=== PATIENT | female | born 1975 | race Two or more races ===

== ENCOUNTER 2020-02-16 13:24 | Outpatient (CLI) | payer MEDICAID ==
--- NOTE | 2020-02-16 17:15 | Consultation ---
DATE OF CONSULTATION: 02/16/2020 CHIEF COMPLAINT: The patient is here for new onset of constipation. PAST MEDICAL HISTORY: None. PAST SURGICAL HISTORY: Tubal ligation. MEDICATIONS: None. FAMILY HISTORY: Aunt had cancer, she does not know what kind of cancer. SOCIAL HISTORY: The patient denies any tobacco, alcohol, or drug abuse. ALLERGIES: To penicillin. REVIEW OF SYSTEMS: Positive for new onset of constipation. PHYSICAL EXAMINATION: VITAL SIGNS: Temperature 97.4, blood pressure 110/66, pulse 78, respirations 20. HEENT: Normocephalic and atraumatic. Sclerae anicteric. NECK: Supple. No evidence of obvious lymphadenopathy. CARDIOVASCULAR: Regular rate and rhythm. Plus S1 and S2. LUNGS: Clear to auscultation bilaterally. ABDOMEN: Positive bowel sounds. Soft and nontender. No rebound. No guarding. EXTREMITIES: No cyanosis. No clubbing. ASSESSMENT/PLAN: The patient is a 44-year-old female with new onset of constipation. The patient is very concerned about malignancy. According to her, she has family history of malignancy, so we are going to try to get authorization for colonoscopy. Meanwhile the patient was given MiraLAX 17 g p.o. at bedtime. Nito Pace M.D. DR: Luigi JOB#: [id number] CC:
== END 2020-02-16 15:24 | disposition home or self-care (01) ==
LOC: PAN 13:24
DX: K59.00 Constipation, unspecified (principal); Z88.0 Allergy status to penicillin
CPT/HCPCS: G0463

== ENCOUNTER 2020-05-08 08:56 | Outpatient (CLI) | payer MEDICAID ==
[2020-05-08 09:09] VITALS: BP 109/69
--- NOTE | 2020-05-08 09:36 | General Progress Note ---
Subjective ROS Limited/Unobtainable: Yes Allergies: Coded Allergies: PENICILLINS (Verified Allergy, Unknown, 02/22/20) Objective Last 24 Hour Vital Signs Date Time Temp Pulse Resp B/P (MAP) Pulse Ox O2 Delivery O2 Flow Rate FiO2 05/08/20 09:09 97.6 74 16 109/69 97 General Appearance: alert EENT: normal ENT inspection Neck: supple Cardiovascular: normal rate Respiratory/Chest: lungs clear Abdomen: normal bowel sounds, non tender, soft Extremities: non-tender Assessment/Plan Assessment/Plan: s/p colonoscopy hemorrhoids asymptomatic RTC prn Nito Pace MD May 08, 2020 09:36
== END 2020-05-08 10:56 | disposition home or self-care (01) ==
LOC: PAN 08:56
DX: K64.9 Unspecified hemorrhoids (principal); Z88.0 Allergy status to penicillin
CPT/HCPCS: 99212